=== PATIENT | female | born 1955 | race Caucasian/White ===

== ENCOUNTER 2019-01-09 05:55 | Day surgery (SDC) | payer OTHER ==
[~2019-01-09] VITALS: Ht 157.5 cm; Wt 88.2 kg
[2019-01-09] MEDS ORDERED: HCTZ (07:11)
[2019-01-09] MEDS ORDERED: BENAZEPRIL (07:11)
[2019-01-09] MEDS ORDERED: PRAVASTATIN (07:11)
[2019-01-09] MEDS ORDERED: METFORMIN (07:11)
[2019-01-09 07:12] VITALS: Ht 157.5 cm; Wt 88.2 kg
[2019-01-09 07:42] VITALS: BP 170/75; PULSE 79; RESP 19
[2019-01-09] MEDS ORDERED: MIDAZOLAM 1 MG/ML 2 ML INJ ONE ×2 (08:56)
[2019-01-09] MEDS ORDERED: FENTAnyl 50 MCG/ML VIAL ONE (08:56)
[2019-01-09 09:13] VITALS: BP 155/88; PULSE 72; RESP 20
--- NOTE | 2019-01-09 11:22 | CONS ---
DATE OF ADMISSION: 01/09/2019 DATE OF CONSULTATION: PATIENT NAME: PAVAN GUADALUPE TYPE OF CONSULTATION: Preoperative gastroenterology. Dear Dr. Valenzuela: I thank you very much for this kind referral. HISTORY OF PRESENT ILLNESS: Ms. Pavan Guadalupe is a 63-year-old female patient who has been referred to me for further evaluation of change in the bowel habit. No past history of colon neoplasm. Appet ite is good. No weight loss. No upper abdominal pain. Not on nonsteroidal anti-inflammatory agents . No history of gallstones or liver disease. PAST MEDICAL HISTORY: She has hypertension and diabetes. No heart disease, lung problem or kidney d isease. Has hyperlipidemia. Status post tubal ligation. SOCIAL HISTORY: Nonsmoker. No alcohol abuse. FAMILY HISTORY: The patient's mother had stomach cancer. ALLERGIES: NO DRUG ALLERGIES. MEDICATIONS: 1. Benazepril. 2. Hydrochlorothiazide. 3. Metformin. 4. Pravastatin. PHYSICAL EXAMINATION: VITAL SIGNS: She is 5 feet, 1 inch tall and weighs 180 pounds. HEART: Normal heart sounds. LUNGS: Clear. ABDOMEN: Soft. No masses. Normal bowel sounds. NEUROLOGIC: Normal. IMPRESSION: 1. Change in the bowel habit. 2. The patient needs screening colonoscopy. 3. Hypertension. 4. Diabetes mellitus. 5. Hyperlipidemia. 6. Status post tubal ligation. 7. The patient's mother had stomach cancer. PLAN: Screening colonoscopy. The procedure and possible complications are well explained to the patient. She understands and cons ents to the procedure. I thank you once again. With warmest personal regards, Dictated By: JIMMY KLEIN/SHAY Conf#: [id number] DID#: [id number]
== END 2019-01-09 10:22 | disposition home or self-care (01) ==
LOC: GIL 05:55
PROVIDERS: ATTEND Internal Medicine Gastroenterology
DX: Z12.11 Encounter for screening for malignant neoplasm of colon (principal); K64.8 Other hemorrhoids; K57.30 Diverticulosis of large intestine without perforation or abscess without bleeding; I10 Essential (primary) hypertension; E11.9 Type 2 diabetes mellitus without complications
CPT/HCPCS: 45378; 82962; J2250; J3010